=== PATIENT | female | born 1990 | race Caucasian/White ===

== ENCOUNTER 2016-04-09 09:15 | Emergency (ER) | payer MEDICAID, OTHER ==
[~2016-04-09] VITALS: Ht 170.2 cm; Wt 50.0 kg
[~2016-04-09 09:15] MED LIST: CIPR0.3S2 LEFT EYE
[2016-04-09 09:17] VITALS: BP 103/67; PULSE 89; RESP 16; TEMP 97.4; O2SAT 96
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
[2016-04-09] MEDS ORDERED: ORPHENADRINE INJ 60 MG/2 ML AMP IM ONE (09:45)
[2016-04-09] MEDS ORDERED: KETOROLAC TROMETHAMINE 60 MG/2 ML (IM) VIAL IM ONE (09:45)
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
[2016-04-09] MEDS ORDERED: ROBA750T PO (10:10)
[2016-04-09] MEDS ORDERED: NAPR500T PO (10:10)
[2016-04-09] MEDS ORDERED: CYCLOBENZAPRINE HCL 10 MG TAB PO ONE (10:30)
[2016-04-09] MEDS ORDERED: IBUPROFEN 800 MG TAB PO ONE (10:30)
== END 2016-04-09 12:19 | disposition home or self-care (01) ==
LOC: NEPB 09:15
DX: S16.1XXA Strain of muscle, fascia and tendon at neck level, initial encounter (principal); V49.59XA Passenger injured in collision with other motor vehicles in traffic accident, initial encounter; Y93.89 Activity, other specified; Y92.410 Unspecified street and highway as the place of occurrence of the external cause
CPT/HCPCS: 72050; 96372; 99284; J1885; J2360

== ENCOUNTER 2016-06-03 08:24 | Emergency (ER) | payer MEDICAID, OTHER ==
[~2016-06-03] VITALS: Ht 170.2 cm; Wt 50.0 kg
[~2016-06-03 08:24] MED LIST changes: -CIPR0.3S2 LEFT EYE; +NAPR500T PO; +ROBA750T PO
[2016-06-03 08:26] VITALS: BP 101/70; PULSE 96; RESP 16; TEMP 98.1; O2SAT 99
--- NOTE | 2016-06-03 08:51 | PD ---
HPI Chief Complaint: Oral / Dental Pain or Problem Time Seen by Provider: 08:51 Travel History International Travel<30 days: No Contact w/Intl Traveler<30days: No Traveled to known affect area: No History of Present Illness HPI 26-year-old female presents to the emergency Department with complaint of left lower dental pain since yesterday. Denies trauma. Denies fever, chills, nausea , vomiting. The pain radiates from her lower jaw to her ear. Denies facial erythema, edema. Reports tenderness on palpation to the left lower jaw area. She has been taking Advil with no relief of pain. Has a dentist she can follow- up with. No known allergies. No other modifying factors or associated signs and symptoms. PFSH Past Medical History Cancer: No Cardiovascular Problems: No Diabetes: No Diminished Hearing: No Endocrine: No Gastrointestinal Disorders: No Genitourinary: No Immune Disorder: No Implanted Vascular Access Dvce: No Musculoskeletal: No Neurologic: No Psychiatric: No Reproductive: Yes (tubal times 2) Respiratory: No Immunizations Current: Yes ?: Not : 2 Para: 1 Miscarriage: 1 : 0 Ectopic : Yes Dilation and Curettage (D&C): Yes Past Surgical History Gynecologic Surgery: Yes (SX POST TUBAL 2007 and 2012) Pacemaker: No Social History Alcohol Use: No Tobacco Use: No Substance Use: No Allergies-Medications (Allergen,Severity, Reaction): Coded Allergies: No Known Allergies (Verified , 04/09/16) Reported Meds & Prescriptions Reported Meds & Active Scripts Active Ibuprofen 800 Mg Tab 800 Mg PO Q6HR PRN Magic Mouthwash Pediatric/Adult Liq (Lidocaine/Diphenhydr/Alum/Mg/Simeth) 60 Ml Susp 5 Ml SWISH-SWAL Q3HR PRN Each 5mL contains: Diphenydramine 4.5mg, Viscous Lidocaine 2% 10mg, Maalox Advanced Regular Strength 2.7ml Amoxicillin 500 Mg Cap 500 Mg PO BID 10 Days Peridex Liq (Chlorhexidine Gluconate (Mouth) Liq) 0.12% Soln 15 Ml SWISH-SPIT BID 10 Days Robaxin (Methocarbamol) 750 Mg Tab 750 Mg PO QID PRN 2 tabs QID for 2 days, then 1 tab QID thereafter Naproxen 500 Mg Tab 500 Mg PO BID Review of Systems Except as stated in HPI: all other systems reviewed are Neg Physical Exam Narrative GENERAL: Well-nourished, well-developed female patient, in no acute distress; afebrile, nontoxic-appearing SKIN: Warm and dry. HEAD: Atraumatic. Normocephalic. No facial edema, erythema; with tenderness on palpation to the left lower jaw line. No lymphadenopathy. EYES: Pupils equal and round. No scleral icterus. No injection or drainage. ENT: Mucosa pink and moist. No erythema or exudates. No uvular edema. No uvular , palatal, or tonsillar deviation. Airway patent. EARS: Bilateral pinnae and external canals appear within normal limits. Bilateral tympanic membranes without erythema, dullness or perforation. MOUTH: Mucous membranes moist, no lesions, tongue and gums appear normal. Left lower wisdom tooth with part of the tooth missing with tenderness on palpation; surrounding gingiva without erythema, edema, drainage; no obvious abscess. NECK: Trachea midline. No lymphadenopathy. CARDIOVASCULAR: Regular rate. RESPIRATORY: No accessory muscle use. GASTROINTESTINAL: Flat. MUSCULOSKELETAL: No obvious deformities. No clubbing. No cyanosis. No edema. NEUROLOGICAL: Awake and alert. Oriented 3. No obvious cranial nerve deficits. Motor grossly within normal limits. Normal speech. PSYCHIATRIC: Appropriate mood and affect; insight and judgment normal. Data Data Last Documented VS Vital Signs Date Time Temp Pulse Resp B/P Pulse Ox O2 Delivery O2 Flow Rate FiO2 06/03/16 08:26 98.1 96 16 101/70 99 Room Air Orders Ibuprofen (Motrin) (06/03/16 09:00) [facility] Medical Decision Making Medical Screen Exam Complete: Yes Emergency Medical Condition: Yes Medical Record Reviewed: Yes Differential Diagnosis Dentalgia, dental abscess, dental caries Narrative Course 26-year-old female with left lower wisdom tooth dentalgia. No facial erythema, edema. No lymphadenopathy. Patient is afebrile and nontoxic-appearing. Ibuprofen administered in the ER. Amoxicillin, Magic mouthwash, Peridex mouth rinse, ibuprofen prescribed for home. Instructed patient to follow up with dentist. Patient verbalizes understanding and agreement with treatment plan. Patient is medically cleared and stable for discharge. Discussed reasons to return to the emergency department. Instructed patient to follow up with primary care provider. Patient agrees with treatment plan. The patients vital signs are stable and the patient is stable for outpatient follow-up and treatment. Patient discharged home, stable and in no acute distress. Diagnosis Primary Impression: Dentalgia Referrals: Dentist Primary Care Physician Patient Instructions: Dental Abscess (ED), Dental Caries (ED), General Instructions, Toothache (ED) Additional Instructions: Complete full course of antibiotics Ibuprofen as directed and as needed to reduce pain and inflammation Use Magic mouthwash rinse as directed and as needed to decrease pain Use Peridex as directed for oral hygiene Warm compresses to the affected area Follow-up with dentist Follow-up with primary care provider Return to emergency department immediately with worsening of symptoms Med/Other Pt SpecificInfo: Prescription(s) given Scripts Ibuprofen 800 Mg Qsp892 Mg PO Q6HR PRN (PAIN) #30 TAB Ref 0 Prov:Alfreda Bradley 06/03/16 Wnwtmxyibhupfns-Iafecpnav-Kbu-Alum-Simeth Liq (Magic Mouthwash Pediatric/Adult Liq)60 Ml Susp5 Ml SWISH-SWAL Q3HR PRN (PAIN SCALE 1 TO 10) #60 ML Ref 0 Each 5mL contains: Diphenydramine 4.5mg, Viscous Lidocaine 2% 10mg, Maalox Advanced Regular Strength 2.7ml Prov:Alfreda Bradley 06/03/16 Amoxicillin 500 Mg Fuk436 Mg PO BID 10 Days Ref 0 Prov:Alfreda Bradley 06/03/16 Chlorhexidine Gluconate (Mouth) Liq (Peridex Liq)0.12% Soln15 Ml SWISH-SPIT BID 10 Days Ref 0 Prov:Alfreda Bradley 06/03/16 Disposition: 01 DISCHARGE HOME Condition: Stable Alfreda Bradley Jun 03, 2016 08:51
[2016-06-03] MEDS ORDERED: PERI0.126 SWISH-SPIT (08:59)
[2016-06-03] MEDS ORDERED: AMOX500C PO (08:59)
[2016-06-03] MEDS ORDERED: IBUP800T23 PO (08:59)
[2016-06-03] MEDS ORDERED: MAGICPED SWISH-SWAL (08:59)
[2016-06-03] MEDS ORDERED: IBUPROFEN 800 MG TAB PO ONE (09:00)
[2016-06-04] MEDS ORDERED: PERC5TAB12 PO (09:54)
== END 2016-06-03 09:23 | disposition home or self-care (01) ==
LOC: NEPB 08:24
DX: K08.89 Other specified disorders of teeth and supporting structures (principal)
CPT/HCPCS: 99282

== ENCOUNTER 2016-06-04 08:25 | Emergency (ER) | payer MEDICAID, OTHER ==
[~2016-06-04] VITALS: Ht 170.2 cm; Wt 50.0 kg
[~2016-06-04 08:25] MED LIST changes: +AMOX500C PO; +IBUP800T23 PO; +MAGICPED SWISH-SWAL; +PERI0.126 SWISH-SPIT
[2016-06-04 08:27] VITALS: BP 115/68; PULSE 80; RESP 18; TEMP 98.1; O2SAT 97
[2016-06-04] MEDS ORDERED: PERC5TAB12 PO (09:54)
--- NOTE | 2016-06-04 09:54 | PD ---
HPI Chief Complaint: Oral / Dental Pain or Problem Time Seen by Provider: 09:43 Travel History International Travel<30 days: No Contact w/Intl Traveler<30days: No Traveled to known affect area: No History of Present Illness HPI This is a 26-year-old female who presents to the emergency department with swelling in her left jaw for 2 days, constant, severe, associated with pain in her mouth and difficulty biting down and opening her mouth. She denies any fevers or chills. She was seen here yesterday in the emergency department and was prescribed ibuprofen and amoxicillin which she's been taking but she says the pain is getting worse. She said she was unable to sleep last night. She tried to put a hot compress on her face and that was the only thing that helped her. She plans to go to a dentist later today. PFSH Past Medical History Medical History: Denies Significant Hx Cancer: No Cardiovascular Problems: No Diabetes: No Diminished Hearing: No Endocrine: No Gastrointestinal Disorders: No Genitourinary: No Immune Disorder: No Implanted Vascular Access Dvce: No Musculoskeletal: No Neurologic: No Psychiatric: No Reproductive: Yes (tubal times 2) Respiratory: No Immunizations Current: Yes ?: Not : 2 Para: 1 Miscarriage: 1 : 0 Ectopic : Yes Dilation and Curettage (D&C): Yes Past Surgical History Gynecologic Surgery: Yes (SX POST TUBAL 2007 and 2012) Pacemaker: No Social History Alcohol Use: No Tobacco Use: No Substance Use: No Allergies-Medications (Allergen,Severity, Reaction): Coded Allergies: No Known Allergies (Verified , 04/09/16) Reported Meds & Prescriptions Reported Meds & Active Scripts Active Ibuprofen 800 Mg Tab 800 Mg PO Q6HR PRN Magic Mouthwash Pediatric/Adult Liq (Lidocaine/Diphenhydr/Alum/Mg/Simeth) 60 Ml Susp 5 Ml SWISH-SWAL Q3HR PRN Each 5mL contains: Diphenydramine 4.5mg, Viscous Lidocaine 2% 10mg, Maalox Advanced Regular Strength 2.7ml Amoxicillin 500 Mg Cap 500 Mg PO BID 10 Days Peridex Liq (Chlorhexidine Gluconate (Mouth) Liq) 0.12% Soln 15 Ml SWISH-SPIT BID 10 Days Robaxin (Methocarbamol) 750 Mg Tab 750 Mg PO QID PRN 2 tabs QID for 2 days, then 1 tab QID thereafter Naproxen 500 Mg Tab 500 Mg PO BID Review of Systems Except as stated in HPI: all other systems reviewed are Neg Physical Exam Narrative GENERAL:Well appearing, no acute distress SKIN: Warm and dry. HEAD: Atraumatic. Normocephalic. EYES: Pupils equal and round. No injection or drainage. ENT: Fractured posterior left mandibular molar with adjacent swelling and marked tenderness, focal fluctuant area along the left mandible with no surface erythema or induration, exquisitely tender to palpation. No submandibular or sublingual involvement. Patient is able to handle her secretions without difficulty. NECK: Trachea midline. CARDIOVASCULAR: Regular rate and rhythm. No murmur appreciated. RESPIRATORY: Clear to auscultation. Breath sounds equal bilaterally. GASTROINTESTINAL: Abdomen soft, non-tender, nondistended. MUSCULOSKELETAL: No obvious deformities. NEUROLOGICAL: Awake and alert. No obvious cranial nerve deficits. Moving all extremities. PSYCHIATRIC: Tearful. Data Data Last Documented VS Vital Signs Date Time Temp Pulse Resp B/P Pulse Ox O2 Delivery O2 Flow Rate FiO2 06/04/16 08:27 98.1 80 18 115/68 97 MDM Medical Decision Making Medical Screen Exam Complete: Yes Emergency Medical Condition: Yes Interpretation(s) Afebrile, no tachycardia Differential Diagnosis Dental abscess, Thor angina, sialadenitis Narrative Course This is a 26-year-old female who presents to the emergency department the second day in a row with a left-sided dental abscess. She is handling her secretions without difficulty and appears nontoxic. She has no signs of Thor angina. I think she is appropriate for outpatient dental follow-up. She will be prescribed a short course of Percocet for pain control and was advised to continue her antibiotics. Diagnosis Primary Impression: Dental abscess Additional Instructions: If you develop fever, swelling of your neck or chest, or inability to swallow or drooling return to the emergency department. Follow-up with a dentist as soon as possible. Complete your antibiotics as prescribed. Med/Other Pt SpecificInfo: Prescription(s) given Scripts Oxycodone-Acetaminophen (Percocet)5-325 mg Tab1-2 Tab PO Q6H PRN (PAIN) #8 TAB Ref 0 Prov:Angie David MD 3/23/17 Disposition: 01 DISCHARGE HOME Condition: Stable Highet,Angie H. MD Jun 04, 2016 09:54
[2016-06-04 10:11] VITALS: BP 116/78
== END 2016-06-04 10:12 | disposition home or self-care (01) ==
LOC: NEPB 08:25
DX: K04.7 Periapical abscess without sinus (principal)
CPT/HCPCS: 99282

== ENCOUNTER 2016-08-21 16:14 | Emergency (ER) | payer MEDICAID ==
[~2016-08-21] VITALS: Ht 170.2 cm; Wt 50.0 kg
[~2016-08-21 16:14] MED LIST changes: +PERC5TAB12 PO
[2016-08-21 16:16] VITALS: BP 103/66; PULSE 76; RESP 20; TEMP 98.4; O2SAT 98
--- NOTE | 2016-08-21 16:36 | PD ---
Physical Exam Date Seen by Provider: Aug 21, 2016 Time Seen by Provider: 16:35 Data Data Last Documented VS Vital Signs Date Time Temp Pulse Resp B/P Pulse Ox O2 Delivery O2 Flow Rate FiO2 08/21/16 16:16 98.4 76 20 103/66 98 Room Air [facility] Supervised Visit with SHARYN: No Narrative Course 26 YO F with complaint of 7/10 left lower dental pain x 2 days. Facial swelling began today. --fevers. Endorses dental caries in the area. Vitals reviewed. Awaiting bed placement. Lisa Ellsworth Aug 21, 2016 16:36
--- NOTE | 2016-08-21 16:42 | PD ---
HPI Chief Complaint: Oral / Dental Pain or Problem Time Seen by Provider: 16:42 Travel History International Travel<30 days: No Contact w/Intl Traveler<30days: No Traveled to known affect area: No History of Present Illness HPI 26-year-old female presents to emergency Department with complaint of left lower tooth pain since yesterday with facial swelling that started today. Denies fever, vomiting. Has history of dental abscess to the same tooth, and was seen here in May, and has not followed up with a dentist. Took 1 pill of amoxicillin last night from an old prescription. Has no other medical complaints. No known allergies. No other modifying factors or associated signs and symptoms. PFSH Past Medical History Cancer: No Cardiovascular Problems: No Diabetes: No Diminished Hearing: No Endocrine: No Gastrointestinal Disorders: No Genitourinary: No Immune Disorder: No Implanted Vascular Access Dvce: No Musculoskeletal: No Neurologic: No Psychiatric: No Reproductive: Yes (tubal times 2) Respiratory: No Immunizations Current: Yes ?: Not LMP: 08/14/16 : 2 Para: 1 Miscarriage: 1 : 0 Ectopic : Yes Dilation and Curettage (D&C): Yes Past Surgical History Gynecologic Surgery: Yes (SX POST TUBAL 2007 and 2012) Pacemaker: No Social History Alcohol Use: No Tobacco Use: No Substance Use: No Allergies-Medications (Allergen,Severity, Reaction): Coded Allergies: No Known Allergies (Verified , 04/09/16) Reported Meds & Prescriptions Reported Meds & Active Scripts Active Deltasone (Prednisone) 20 Mg Tab 40 Mg PO DAILY 4 Days Start August 22, 2016 Clindamycin (Clindamycin HCl) 150 Mg Cap 450 Mg PO Q6H 10 Days Percocet (Oxycodone-Acetaminophen) 5-325 mg Tab 1-2 Tab PO Q6H PRN Ibuprofen 800 Mg Tab 800 Mg PO Q6HR PRN Magic Mouthwash Pediatric/Adult Liq (Lidocaine/Diphenhydr/Alum/Mg/Simeth) 60 Ml Susp 5 Ml SWISH-SWAL Q3HR PRN Each 5mL contains: Diphenydramine 4.5mg, Viscous Lidocaine 2% 10mg, Maalox Advanced Regular Strength 2.7ml Amoxicillin 500 Mg Cap 500 Mg PO BID 10 Days Peridex Liq (Chlorhexidine Gluconate (Mouth) Liq) 0.12% Soln 15 Ml SWISH-SPIT BID 10 Days Robaxin (Methocarbamol) 750 Mg Tab 750 Mg PO QID PRN 2 tabs QID for 2 days, then 1 tab QID thereafter Naproxen 500 Mg Tab 500 Mg PO BID Review of Systems Except as stated in HPI: all other systems reviewed are Neg Physical Exam Narrative GENERAL: Well-nourished, well-developed female patient, in no acute distress; afebrile, nontoxic-appearing SKIN: Warm and dry. HEAD: Atraumatic. Normocephalic. Left left lower facial edema; without erythema ; with tenderness on palpation. No lymphadenopathy. EYES: Pupils equal and round. No scleral icterus. No injection or drainage. ENT: Mucosa pink and moist. Airway patent. MOUTH: Mucous membranes moist, no lesions, tongue and gums appear normal. Tooth #18 with tenderness on palpation and large dental cavity. Surrounding gingiva is without erythema, edema, drainage. No obvious abscess noted. NECK: Trachea midline. No lymphadenopathy. CARDIOVASCULAR: Regular rate. RESPIRATORY: No accessory muscle use. GASTROINTESTINAL: Flat. MUSCULOSKELETAL: No obvious deformities. No clubbing. No cyanosis. No edema. NEUROLOGICAL: Awake and alert. Oriented 3. No obvious cranial nerve deficits. Motor grossly within normal limits. Normal speech. PSYCHIATRIC: Appropriate mood and affect; insight and judgment normal. Data Data Last Documented VS Vital Signs Date Time Temp Pulse Resp B/P Pulse Ox O2 Delivery O2 Flow Rate FiO2 08/21/16 16:16 98.4 76 20 103/66 98 Room Air Orders Clindamycin Inj (Cleocin Inj) (08/21/16 16:45) Prednisone (Deltasone) (08/21/16 16:45) MDM Medical Decision Making Medical Screen Exam Complete: Yes Emergency Medical Condition: Yes Medical Record Reviewed: Yes Differential Diagnosis Dental abscess, infected dental caries, dentalgia Narrative Course 26-year-old female with left lower dental abscess. Patient afebrile and nontoxic appearing. Left lower facial swelling. She denies fever, vomiting. Clindamycin 600 mg IM and Deltasone administered in the ER. After the patient pain medication and she declined at this time. Emergency dental information sheet provided for follow-up. The patient to follow up with dentist. Patient verbalizes understanding and agreement with treatment plan. Patient is medically cleared and stable for discharge. Discussed reasons to return to the emergency department. Instructed patient to follow up with primary care provider. Patient agrees with treatment plan. The patients vital signs are stable and the patient is stable for outpatient follow-up and treatment. Patient discharged home, stable and in no acute distress. Diagnosis Primary Impression: Dental abscess Referrals: Dentist Primary Care Physician Patient Instructions: Dental Abscess (ED), Dental Caries (ED), General Instructions, Toothache (ED) Departure Forms: Tests/Procedures, Work Release Enter return to work date: Aug 22, 2016 Additional Instructions: Complete full course of antibiotics; clindamycin is on the $4 list at [facility] , otherwise try [facility] Ibuprofen or Tylenol as directed and as needed to reduce pain and inflammation Use Magic mouthwash rinse as directed and as needed to decrease pain Use Peridex as directed for oral hygiene Warm or cool compresses to the affected area Follow-up with dentist Follow-up with primary care provider Return to emergency department immediately with worsening of symptoms Med/Other Pt SpecificInfo: Prescription(s) given Scripts Prednisone (Deltasone)20 Mg Tab40 Mg PO DAILY 4 Days Ref 0 Start August 22, 2016 Prov:Alfreda Bradley 08/21/16 Clindamycin 150 Mg [id number] Mg PO Q6H 10 Days Ref 0 Prov:Alfreda Bradley 08/21/16 Disposition: 01 DISCHARGE HOME Condition: Stable Alfreda Bradley Aug 21, 2016 16:42
[2016-08-21] MEDS ORDERED: CLIN1CAP5 PO (16:45)
[2016-08-21] MEDS ORDERED: PRED-503 PO (16:45)
[2016-08-21] MEDS ORDERED: predniSONE 20 MG TAB PO ONE (16:45)
[2016-08-21] MEDS ORDERED: CLINDAMYCIN PHOS 600 MG/4 ML VIAL IM ONE (16:45)
== END 2016-08-21 17:15 | disposition home or self-care (01) ==
LOC: NEPK 16:14
DX: K04.7 Periapical abscess without sinus (principal); R22.0 Localized swelling, mass and lump, head
CPT/HCPCS: 96372; 99284; J7512

== ENCOUNTER 2016-09-05 17:19 | Emergency (ER) | payer MEDICAID ==
[~2016-09-05] VITALS: Ht 170.2 cm; Wt 52.0 kg
[~2016-09-05 17:19] MED LIST changes: +CLIN1CAP5 PO; +PRED-503 PO
[2016-09-05 17:21] VITALS: BP 112/71; PULSE 64; RESP 14; TEMP 98.6; O2SAT 98
[2016-09-05] MEDS ORDERED: CLINDAMYCIN PHOS 600 MG/4 ML VIAL IM ONE (17:45)
[2016-09-05] MEDS ORDERED: CLINDAMYCIN PED INJ PTS< 20 KG 600 MG in SYRINGE/BAG 1 EA IV ONE (17:45)
[2016-09-05] MEDS ORDERED: CLIN1CAP6 PO (17:55)
--- NOTE | 2016-09-05 17:55 | PD ---
HPI Chief Complaint: Oral / Dental Pain or Problem Time Seen by Provider: 17:37 Travel History International Travel<30 days: No Contact w/Intl Traveler<30days: No Traveled to known affect area: No History of Present Illness HPI This is a 26-year-old female who presents to the emergency department with 2 days of swelling in her left jaw and in her mouth, constant, moderate severity, feeling like dental infection she's had in the past. She denies any fevers or chills. She is having no difficulty swallowing or breathing. She went to a dentist earlier this week but they told her that they wouldn't remove her tooth until her swelling went down. She says the last time she was in the emergency department she received an IM injection of antibiotics which really helped her. PFSH Past Medical History Cancer: No Cardiovascular Problems: No Diabetes: No Diminished Hearing: No Endocrine: No Gastrointestinal Disorders: No Genitourinary: No Immune Disorder: No Implanted Vascular Access Dvce: No Musculoskeletal: No Neurologic: No Psychiatric: No Reproductive: Yes (tubal times 2) Respiratory: No Immunizations Current: Yes ?: Not LMP: 08/04/16 : 2 Para: 1 Miscarriage: 1 : 0 Ectopic : Yes Dilation and Curettage (D&C): Yes Past Surgical History Gynecologic Surgery: Yes (SX POST TUBAL 2007 and 2012) Pacemaker: No Social History Alcohol Use: No Tobacco Use: No Substance Use: No Allergies-Medications (Allergen,Severity, Reaction): Coded Allergies: No Known Allergies (Verified , 09/05/16) Reported Meds & Prescriptions Reported Meds & Active Scripts Active No Active Prescriptions or Reported Medications Review of Systems Except as stated in HPI: all other systems reviewed are Neg Physical Exam Narrative GENERAL:Well appearing, no acute distress SKIN: Focused skin assessment warm and dry. HEAD: Atraumatic. Normocephalic. EYES: Pupils equal and round. No injection or drainage. ENT: Swelling and tenderness of the left mandible, with no submandibular involvement, normal-appearing posterior pharynx NECK: Trachea midline. CARDIOVASCULAR: Regular rate and rhythm. No murmur appreciated. RESPIRATORY: Clear to auscultation. Breath sounds equal bilaterally. GASTROINTESTINAL: Abdomen soft, non-tender, nondistended. MUSCULOSKELETAL: No obvious deformities. NEUROLOGICAL: Awake and alert. No obvious cranial nerve deficits. Moving all extremities. PSYCHIATRIC: Appropriate mood and affect; insight and judgment normal. Data Data Last Documented VS Vital Signs Date Time Temp Pulse Resp B/P Pulse Ox O2 Delivery O2 Flow Rate FiO2 09/05/16 17:39 16 09/05/16 17:21 98.6 64 112/71 98 Orders Clindamycin Ped Inj Pts< 20 Kg (Cleocin (09/05/16 17:45) Clindamycin Inj (Cleocin Inj) (09/05/16 17:45) MDM Medical Decision Making Medical Screen Exam Complete: Yes Emergency Medical Condition: Yes Differential Diagnosis dental abscess, sunday's angina, dentalgia Narrative Course This is a 26-year-old female who presents to the emergency department with a likely dental abscess along the left mandible. She is nontoxic appearing and has no airway compromise and is swallowing easily. She is appropriate for outpatient therapy. She is given a dose of IM clindamycin and will be discharged on oral clindamycin. Diagnosis Primary Impression: Dental abscess Patient Instructions: General Instructions Additional Instructions: If you develop increasing swelling, difficulty swallowing, difficulty breathing or high fever return to the emergency department. Med/Other Pt SpecificInfo: Prescription(s) given Scripts Clindamycin 300 Mg [id number] Mg PO TID #21 CAP Prov:Angie David MD 09/05/16 Disposition: 01 DISCHARGE HOME Condition: Stable Angie David MD Sep 05, 2016 17:55
[2016-09-05] MEDS ORDERED: CLINDAMYCIN 600 MG/NS 100 ML IV ONE ×2 (18:00)
== END 2016-09-05 18:50 | disposition home or self-care (01) ==
LOC: NEPD 17:19
DX: K04.7 Periapical abscess without sinus (principal)
CPT/HCPCS: 96372

== ENCOUNTER 2017-05-10 11:24 | Emergency (ER) | payer MEDICAID ==
[~2017-05-10 11:24] MED LIST changes: -AMOX500C PO; -CLIN1CAP5 PO; +CLIN300C5 PO; -IBUP800T23 PO; -MAGICPED SWISH-SWAL; -NAPR500T PO; -PERC5TAB12 PO; -PERI0.126 SWISH-SPIT; -PRED-503 PO; -ROBA750T PO
[2017-05-10 12:10] VITALS: BP 130/77; PULSE 65; RESP 12; TEMP 98.6; O2SAT 99
[2017-05-10] MEDS ORDERED: CLIN300C5 PO (13:33)
[2017-05-10] MEDS ORDERED: MAGICADU2 SWISH-SPIT (13:33)
[2017-05-10] MEDS ORDERED: IBUP1TAB7 PO (13:33)
--- NOTE | 2017-05-10 13:37 | PD ---
HPI Chief Complaint: Oral / Dental Pain or Problem Time Seen by Provider: 13:25 Travel History International Travel<30 days: No Contact w/Intl Traveler<30days: No Traveled to known affect area: No History of Present Illness HPI Examined in the presence of a nurse. 27-year-old female presents for evaluation of dental pain. Symptoms started 2 weeks ago. Pain is a throbbing pain, constant, localized to the left mandibular second molar and radiating to the left pentecostal. Pain is unrelieved with [id number] NSAID use. Denies fevers, chills. She reports that she has had frequent similar problems in the past and is attempting to get an appointment with a dentist. No other complaints at this time. PFSH Past Medical History Medical History: Denies Significant Hx Cancer: No Cardiovascular Problems: No Diabetes: No Diminished Hearing: No Endocrine: No Gastrointestinal Disorders: No Genitourinary: No Immune Disorder: No Implanted Vascular Access Dvce: No Musculoskeletal: No Neurologic: No Psychiatric: No Reproductive: Yes (tubal times 2) Respiratory: No Immunizations Current: Yes Tetanus Vaccination: > 5 Years Influenza Vaccination: No ?: Not LMP: 05/05/17 : 2 Para: 1 Miscarriage: 1 : 0 Ectopic : Yes Dilation and Curettage (D&C): Yes Past Surgical History Gynecologic Surgery: Yes (SX POST TUBAL 2007 and 2012) Pacemaker: No Social History Alcohol Use: No Tobacco Use: No Substance Use: No Allergies-Medications (Allergen,Severity, Reaction): Coded Allergies: No Known Allergies (Verified , 09/05/16) Reported Meds & Prescriptions Reported Meds & Active Scripts Active Clindamycin (Clindamycin HCl) 300 Mg Cap 300 Mg PO TID Magic Mouthwash Adult Liq (Multi-Ingredient Mouthwash/Gargle) 120 Ml Susp 10 Ml SWISH-SPIT ACHS Each 5mL contains: Nystatin 200,000units, Diphenhydramine 4.25mg, Viscous Lidocaine 10mg, Campbell syrup 0.8 mL Ibuprofen 800 Mg Tab 800 Mg PO Q6HR PRN Clindamycin (Clindamycin HCl) 300 Mg Cap 300 Mg PO TID Review of Systems General / Constitutional: No: Fever, Chills HENT: Positive: Dental Difficulties, No: Ear Discharge, Earache Physical Exam Narrative GENERAL: Well-nourished female in no acute distress SKIN: Warm and dry. HEAD: Atraumatic. Normocephalic. EYES: Pupils equal and round. No scleral icterus. No injection or drainage. ENT: No nasal bleeding or discharge. Mucous membranes pink and moist. Left mandibular second molar is decayed and the surrounding gumline is erythematous. There is no trismus, no facial edema, no sublingual edema. NECK: Trachea midline. No JVD. CARDIOVASCULAR: Regular rate and rhythm. No murmur appreciated. RESPIRATORY: No accessory muscle use. Clear to auscultation. Breath sounds equal bilaterally. Data Data Last Documented VS Vital Signs Date Time Temp Pulse Resp B/P (MAP) Pulse Ox O2 Delivery O2 Flow Rate FiO2 05/10/17 12:10 98.6 65 12 130/77 (94) 99 Orders Orders Ed Discharge Order (05/10/17 13:33) Clindamycin Inj (Cleocin Inj) (05/10/17 13:45) MDM Medical Decision Making Medical Screen Exam Complete: Yes Emergency Medical Condition: Yes Medical Record Reviewed: Yes Differential Diagnosis Dental caries, pulpitis, pericoronitis, periodontal abscess Narrative Course The patient will be treated with clindamycin. She is specifically requesting an intramuscular injection of clindamycin. Ultimately she will require tooth extraction. She is stable for discharge. Diagnosis Primary Impression: Dental caries Additional Instructions: Medication as prescribed. Follow up with a dentist for definitive therapy. Return for any emergent medical conditions. Med/Other Pt SpecificInfo: Prescription(s) given Scripts Clindamycin (Clindamycin) 300 Mg Cap 300 MG PO TID for Infection, #21 CAP 0 Refills Prov: Duane Aguayo MD 05/10/17 Wbukuzps-Abxfjkrgdoalnjx-Cuomoslje Liq (Magic Mouthwash Adult Liq) 120 Ml Susp 10 ML SWISH-SPIT ACHS for Mouth sores, #120 ML 0 Refills Each 5mL contains: Nystatin 200,000units, Diphenhydramine 4.25mg, Viscous Lidocaine 10mg, Campbell syrup 0.8 mL Prov: Duane Aguayo MD 05/10/17 Ibuprofen (Ibuprofen) 800 Mg Tab 800 MG PO Q6HR Y for PAIN, #40 TAB 0 Refills Prov: Duane Aguayo MD 05/10/17 Disposition: 01 DISCHARGE HOME Condition: Stable Wellington Wallace May 10, 2017 13:37
[2017-05-10] MEDS ORDERED: CLINDAMYCIN PHOS 600 MG/4 ML VIAL IM ONE (13:45)
[2017-05-10] MEDS ORDERED: diphenhydrAMINE HCL 50 MG/ML VIAL IM ONE (14:00)
== END 2017-05-10 14:21 | disposition home or self-care (01) ==
LOC: NEPK 11:24
DX: K02.9 Dental caries, unspecified (principal)
CPT/HCPCS: 96372; 99283; J1200

== ENCOUNTER 2017-05-23 13:00 | Emergency (ER) | payer SELFPAY ==
[~2017-05-23] VITALS: Ht 170.2 cm; Wt 55.0 kg
[~2017-05-23 13:00] MED LIST changes: +IBUP1TAB7 PO; +MAGICADU2 SWISH-SPIT
[2017-05-23 13:15] VITALS: BP 102/67; PULSE 87; RESP 18; TEMP 98.5; O2SAT 98
[2017-05-23] MEDS ORDERED: LIDOCAINE VISCOUS 2% SOLN 15 ML UDC PO ONE (15:15)
[2017-05-23] MEDS ORDERED: ALUMINUM/MAGNESIUM/SIMETH 30 ML CUP PO ONE (15:15)
[2017-05-23] MEDS ORDERED: ACETAMINOPHEN/HYDROcodone 325 MG/5 MG TAB PO ONE (15:15)
[2017-05-23] MEDS ORDERED: SODIUM CHLORIDE 0.9% FLUSH 10 ML FLUSH IV FLUSH PRN (15:15)
[2017-05-23 15:26] VITALS: O2SAT 99
[2017-05-23] MEDS ORDERED: PENI500T PO (15:43)
--- NOTE | 2017-05-23 15:45 | PD ---
HPI Chief Complaint: Oral / Dental Pain or Problem Time Seen by Provider: 15:00 Travel History International Travel<30 days: No Contact w/Intl Traveler<30days: No Traveled to known affect area: No History of Present Illness HPI The patient is 27 years old and complains of left face pain and swelling for approximately 1 week. The pain is worse with opening the mouth. No fever. Pain is worse with palpation. It is constant and of moderate severity. Patient reports diagnosis of a dental abscess approximately a week and a half ago and was prescribed antibiotics however lost the antibiotics. She reports minimal pain relief from ibuprofen. She complains of epigastric and right upper quadrant pain for the last day and a half. No vomiting. No vaginal discharge or bleeding. No fever. PFSH Past Medical History Cancer: No Cardiovascular Problems: No Diabetes: No Diminished Hearing: No Endocrine: No Gastrointestinal Disorders: No Genitourinary: No Immune Disorder: No Implanted Vascular Access Dvce: No Musculoskeletal: No Neurologic: No Psychiatric: No Reproductive: Yes (tubal times 2) Respiratory: No Immunizations Current: Yes ?: Not : 2 Para: 1 Miscarriage: 1 : 0 Ectopic : Yes Dilation and Curettage (D&C): Yes Past Surgical History Gynecologic Surgery: Yes (SX POST TUBAL 2007 and 2012) Pacemaker: No Social History Alcohol Use: No Tobacco Use: No Substance Use: No Allergies-Medications (Allergen,Severity, Reaction): Coded Allergies: No Known Allergies (Verified Adverse Reaction, Unknown, 05/23/17) Reported Meds & Prescriptions Reported Meds & Active Scripts Active Penicillin V Potassium 500 Mg Tab 500 Mg PO Q8H 10 Days Clindamycin (Clindamycin HCl) 300 Mg Cap 300 Mg PO TID Magic Mouthwash Adult Liq (Multi-Ingredient Mouthwash/Gargle) 120 Ml Susp 10 Ml SWISH-SPIT ACHS Each 5mL contains: Nystatin 200,000units, Diphenhydramine 4.25mg, Viscous Lidocaine 10mg, Campbell syrup 0.8 mL Ibuprofen 800 Mg Tab 800 Mg PO Q6HR PRN Clindamycin (Clindamycin HCl) 300 Mg Cap 300 Mg PO TID Review of Systems Except as stated in HPI: all other systems reviewed are Neg General / Constitutional: No: Fever Physical Exam Narrative GENERAL: 27-year-old female moderate distress Vital Signs Date Time Temp Pulse Resp B/P (MAP) Pulse Ox O2 Delivery O2 Flow Rate FiO2 05/23/17 15:26 99 05/23/17 13:15 98.5 87 18 102/67 (79) 98 SKIN: Warm and dry. HEAD: Atraumatic. Normocephalic. EYES: Pupils equal and round. No scleral icterus. No injection or drainage. ENT: No nasal bleeding or discharge. Mucous membranes pink and moist. L dental abscess with TTP L lower molars. NECK: Trachea midline. No JVD. CARDIOVASCULAR: Regular rate and rhythm. RESPIRATORY: No accessory muscle use. Clear to auscultation. Breath sounds equal bilaterally. GASTROINTESTINAL: Soft. Minimal TTP epigastrium. MUSCULOSKELETAL: Extremities without clubbing, cyanosis, or edema. No obvious deformities. NEUROLOGICAL: Awake and alert. No obvious cranial nerve deficits. Motor grossly within normal limits. Five out of 5 muscle strength in the arms and legs. Normal speech. PSYCHIATRIC: Appropriate mood and affect; insight and judgment normal. Data Data Last Documented VS Vital Signs Date Time Temp Pulse Resp B/P (MAP) Pulse Ox O2 Delivery O2 Flow Rate FiO2 05/23/17 15:26 99 05/23/17 13:15 98.5 87 18 102/67 (79) Orders Orders Complete Blood Count With Diff (05/23/17 15:06) Comprehensive Metabolic Panel (05/23/17 15:06) Lipase (05/23/17 15:06) Urinalysis - C+S If Indicated (05/23/17 15:06) Iv Access Insert/Monitor (05/23/17 15:06) Ecg Monitoring (05/23/17 15:06) Oximetry (05/23/17 15:06) Sodium Chloride 0.9% Flush (Ns Flush) (05/23/17 15:15) Ed Urine Pregnancytest Poc (05/23/17 15:06) Acetamin-Hydrocod 325-5 Mg ([place] 5-325 (05/23/17 15:15) Al-Mag Hy-Si 40-40-4 Mg/Ml Liq (Mag-Al P (05/23/17 15:15) Lidocaine 2% Viscous (Xylocaine 2% Visco (05/23/17 15:15) Ed Discharge Order (05/23/17 16:09) Labs Laboratory Tests Test 05/23/17 15:21 White Blood Count 9.2 TH/MM3 Red Blood Count 4.48 MIL/MM3 Hemoglobin 13.0 GM/DL Hematocrit 38.6 % Mean Corpuscular Volume 86.1 FL Mean Corpuscular Hemoglobin 28.9 PG Mean Corpuscular Hemoglobin Concent 33.6 % Red Cell Distribution Width 14.0 % Platelet Count 235 TH/MM3 Mean Platelet Volume 9.2 FL Neutrophils (%) (Auto) 63.9 % Lymphocytes (%) (Auto) 25.9 % Monocytes (%) (Auto) 8.8 % Eosinophils (%) (Auto) 0.9 % Basophils (%) (Auto) 0.5 % Neutrophils # (Auto) 5.9 TH/MM3 Lymphocytes # (Auto) 2.4 TH/MM3 Monocytes # (Auto) 0.8 TH/MM3 Eosinophils # (Auto) 0.1 TH/MM3 Basophils # (Auto) 0.0 TH/MM3 CBC Comment DIFF FINAL Differential Comment Urine Color YELLOW Urine Turbidity HAZY Urine pH 6.5 Urine Specific [place] 1.029 Urine Protein TRACE mg/dL Urine Glucose (UA) NEG mg/dL Urine Ketones 40 mg/dL Urine Occult Blood NEG Urine Nitrite NEG Urine Bilirubin NEG Urine Urobilinogen LESS THAN 2.0 MG/DL Urine Leukocyte Esterase NEG Urine WBC 1 /hpf Urine Squamous Epithelial Cells 5 /hpf Urine Bacteria RARE /hpf Urine Mucus MANY /lpf Microscopic Urinalysis Comment CULT NOT INDICATED Blood Urea Nitrogen 12 MG/DL Creatinine 0.57 MG/DL Random Glucose 81 MG/DL Total Protein 7.2 GM/DL Albumin 3.9 GM/DL Calcium Level 8.4 MG/DL Alkaline Phosphatase 72 U/L Aspartate Amino Transf (AST/SGOT) 9 U/L Alanine Aminotransferase (ALT/SGPT) 10 U/L Total Bilirubin 0.8 MG/DL Sodium Level 139 MEQ/L Potassium Level 3.8 MEQ/L Chloride Level 107 MEQ/L Carbon Dioxide Level 25.6 MEQ/L Anion Gap 6 MEQ/L Estimat Glomerular Filtration Rate 126 ML/MIN Lipase 52 U/L [facility] Medical Decision Making Medical Screen Exam Complete: Yes Emergency Medical Condition: Yes Medical Record Reviewed: Yes Differential Diagnosis Dental abscess, Thor angina, parotid duct occlusion, Constipation, Gastritis, Acute Cholecystitis, Biliary Colic, Pancreatitis, TAI, Hepatitis, Bowel Obstruction, Cystitis, Mesenteric Ischemia, AAA, Appendicitis, Renal Stone/ Hydronephrosis, GERD, perforated viscous Narrative Course CBC & BMP Diagram 05/23/17 15:21 Total Protein 7.2, Albumin 3.9, Calcium Level 8.4 L, Alkaline Phosphatase 72, Aspartate Amino Transf (AST/SGOT) 9 L, Alanine Aminotransferase (ALT/SGPT) 10, Total Bilirubin 0.8 The patient is resting comfortably and feels better, is alert and in no distress. The patients results and examination findings were discussed. The repeat examination is unremarkable and benign. The history, exam, diagnostic testing, and current condition do not suggest any significant pathology to warrant further testing, continued ED treatment, admission, or surgical evaluation at this point. The vital signs have been stable. The patient does not have uncontrollable pain, intractable vomiting, or other significant symptoms. The patient's condition is stable and appropriate for discharge. The patient will pursue further outpatient evaluation with a primary care physician or other designated or consulting physician as indicated in the discharge instructions. The patient expressed understanding and was agreeable with this plan. Diagnosis Primary Impression: Dentalgia Additional Impression: Dental abscess Referrals: Dentist 2 days Med/Other Pt SpecificInfo: Prescription(s) given Scripts Penicillin V Potassium (Penicillin V Potassium) 500 Mg Tab 500 MG PO Q8H for Infection for 10 Days, #30 TAB 0 Refills Prov: Abdias Stern MD 05/23/17 Disposition: 01 DISCHARGE HOME Condition: Stable Abdias Stern MD May 23, 2017 15:45
[2017-05-23 15:51] LABS: AUTOMATED NEUTROPHIL # 5.9 TH/MM3 (1.8-7.7); BASOPHIL % 0.5 % (0.0-2.0); EOSINOPHIL # 0.1 TH/MM3 (0-0.4); EOSINOPHIL % 0.9 % (0.0-4.0); HEMATOCRIT 38.6 % (35.0-46.0); LYMPH % 25.9 % (9.0-44.0); LYMPHOCYTE # 2.4 TH/MM3 (1.0-4.8); MEAN CELL VOLUME 86.1 FL (80.0-100.0); MEAN CORPUSCULAR HEMOGLOBIN 28.9 PG (27.0-34.0); MEAN CORPUSCULAR HGB CONC 33.6 % (32.0-36.0); MEAN PLATELET VOLUME 9.2 FL (7.0-11.0); MONO % 8.8 % (0.0-8.0); MONOCYTE # 0.8 TH/MM3 (0-0.9); NEUT % 63.9 % (16.0-70.0); PLATELET COUNT 235 TH/MM3 (150-450); RED BLOOD COUNT 4.48 MIL/MM3 (4.00-5.30); WHITE BLOOD COUNT 9.2 TH/MM3 (4.0-11.0)
[2017-05-23 15:58] LABS: BACTERIA, URINE RARE /hpf; BILIRUBIN, URINE NEG (NEG); BLOOD, URINE NEG (NEG); GLUCOSE,URINE NEG (NEG); KETONE, URINE 40 mg/dL (NEG); MUCUS URINE MANY /lpf (OCC); NITRITE,URINE NEG (NEG); PH, URINE 6.5 (5.0-8.5); SQUAMOUS EPITHELIAL CELL URINE 5 /hpf (0-5); URINE COLOR YELLOW (YELLW/STRAW); URINE LEUKOCYTE ESTERASE NEG (NEG)
[2017-05-23 16:02] LABS: ALBUMIN 3.9 GM/DL (3.4-5.0); ALT (GPT) 10 U/L (10-53); AST (GOT) 9 U/L (15-37); BICARBONATE 25.6 MEQ/L (21.0-32.0); BLOOD UREA NITROGEN 12 MG/DL (7-18); CALCIUM 8.4 MG/DL (8.5-10.1); CHLORIDE 107 MEQ/L (98-107); CREATININE 0.57 MG/DL (0.50-1.00); GLOMERULAR FILTRATION RATE 126 ML/MIN (>89); GLUCOSE,RANDOM 81 MG/DL (74-106); SODIUM (NA) 139 MEQ/L (136-145)
[2017-05-23 16:03] LABS: ALKALINE PHOSPHATASE 72 U/L (45-117); TOTAL BILIRUBIN ADULT 0.8 MG/DL (0.2-1.0); TOTAL PROTEIN 7.2 GM/DL (6.4-8.2)
== END 2017-05-23 16:12 | disposition home or self-care (01) ==
LOC: NEPD 13:00
DX: K04.7 Periapical abscess without sinus (principal)
CPT/HCPCS: 80053; 81001; 83690; 84703; 85025; 99283

== ENCOUNTER 2017-05-26 15:40 | Emergency (ER) | payer MEDICAID ==
[~2017-05-26] VITALS: Ht 170.2 cm; Wt 55.0 kg
[~2017-05-26 15:40] MED LIST changes: +PENI500T PO
[2017-05-26] MEDS ORDERED: IOHEXOL 350 MG/ML 10 ML VIAL (for RAD DIAG) IVCONTRAST ONE (15:41)
[2017-05-26 16:15] VITALS: BP 104/63; PULSE 81; RESP 17; TEMP 98.6; O2SAT 100
[2017-05-26 17:39] VITALS: BP 115/75; PULSE 68; RESP 18; O2SAT 100
[2017-05-26] MEDS ORDERED: SODIUM CHLOR 0.9% 1000 ML INJ 1,000 ML IV ONE (18:00)
[2017-05-26] MEDS ORDERED: SODIUM CHLORIDE 0.9% FLUSH 10 ML FLUSH IVF PRN (18:00)
[2017-05-26] MEDS ORDERED: MORPHINE SULFATE 2 MG/ML INJ IV PUSH ONE (18:00)
[2017-05-26] MEDS ORDERED: ONDANSETRON HCL 4 MG/2 ML VIAL IV PUSH ONE (18:00)
[2017-05-26] MEDS ORDERED: KETOROLAC TROMETHAMINE 60 MG/2 ML (IM) VIAL IM ONE (18:00)
--- NOTE | 2017-05-26 18:08 | PD ---
HPI Chief Complaint: Facial Pain or Swelling Time Seen by Provider: 17:36 Travel History International Travel<30 days: No Contact w/Intl Traveler<30days: No Traveled to known affect area: No History of Present Illness HPI 27-year-old female presents emergency department is about swelling of her left jaw that worsened last night. States that she was evaluated by her dentist and was due to have her wisdom tooth extracted but states he cannot do this until the abscess or swelling reduce in size. Says that she also came to the emergency department twice where she was prescribed clindamycin and Pen-VK but the swelling has worsened. Says that initially the area of swelling was "squishy" but has since hardened become more painful. States she is unable to open her jaw fully and is having difficulty eating. Says she has pain from her proximal neck to her TMJ and is severe and aching. Says she felt feverish yesterday with sweats but does not feel feverish now. Says she took ibuprofen about 9:00 this morning which did help a little with her pain. She denies chronic medical issues or medication use. PFSH Past Medical History Cancer: No Cardiovascular Problems: No Diabetes: No Diminished Hearing: No Endocrine: No Gastrointestinal Disorders: No Genitourinary: No Immune Disorder: No Implanted Vascular Access Dvce: No Musculoskeletal: No Neurologic: No Psychiatric: No Reproductive: Yes (tubal ) Respiratory: No Immunizations Current: Yes ?: Not LMP: 05/10/17 : 2 Para: 1 Miscarriage: 1 : 0 Ectopic : Yes Dilation and Curettage (D&C): Yes Past Surgical History Gynecologic Surgery: Yes (SX POST TUBAL 2007 and 2012) Pacemaker: No Social History Alcohol Use: No Tobacco Use: No Substance Use: No Allergies-Medications (Allergen,Severity, Reaction): Coded Allergies: No Known Allergies (Verified Adverse Reaction, Unknown, 05/26/17) Reported Meds & Prescriptions Reported Meds & Active Scripts Active Cefadroxil Liq (Cefadroxil) 500 Mg/5 Ml Susp 500 Mg PO BID 10 Days Penicillin V Potassium 500 Mg Tab 500 Mg PO Q8H 10 Days Ibuprofen 800 Mg Tab 800 Mg PO Q6HR PRN Review of Systems Except as stated in HPI: all other systems reviewed are Neg Physical Exam Narrative GENERAL: WD WN, anxious SKIN: Focused skin assessment warm/dry. HEAD: Atraumatic. Normocephalic. EYES: Pupils equal and round. No scleral icterus. No injection or drainage. No tenderness palpation of the orbits, no ptosis, no proptosis ENT: No nasal bleeding or discharge. Mucous membranes pink and moist, significant trismus without drooling, patient able to open her jaw less than 1 finger width, protrusion the lateral aspect of the left mandible near the angle of the jaw NECK: Trachea midline. No JVD. Tenderness palpation mid neck SCMs without lymphadenopathy, no meningismus, swelling does not cross midline CARDIOVASCULAR: Regular rate and rhythm. No murmur appreciated. RESPIRATORY: No accessory muscle use. Clear to auscultation. Breath sounds equal bilaterally. GASTROINTESTINAL: Abdomen soft, non-tender, nondistended. No CVA tenderness MUSCULOSKELETAL: No obvious deformities. No clubbing. No cyanosis. No edema. NEUROLOGICAL: Awake and alert. No obvious cranial nerve deficits. Motor grossly within normal limits. Normal speech. PSYCHIATRIC: Appropriate mood and affect; insight and judgment normal. Data Data Last Documented VS Vital Signs Date Time Temp Pulse Resp B/P (MAP) Pulse Ox O2 Delivery O2 Flow Rate FiO2 05/27/17 00:21 05/26/17 19:06 83 20 100 Room Air 05/26/17 16:15 98.6 Orders Orders Ketorolac Inj (Toradol Inj) (05/26/17 18:00) Basic Metabolic Panel (Bmp) (05/26/17 17:48) Complete Blood Count With Diff (05/26/17 17:48) Blood Culture (05/26/17 17:48) Sodium Chloride 0.9% Flush (Ns Flush) (05/26/17 18:00) Morphine Inj (Morphine Inj) (05/26/17 18:00) Ondansetron Inj (Zofran Inj) (05/26/17 18:00) Sodium Chlor 0.9% 1000 Ml Inj (Ns 1000 M (05/26/17 18:00) Ct Soft Tiss Neck W Iv Cont (05/26/17 ) C-Reactive Protein (Crp) (05/26/17 17:48) Westergren Sedimentation Rate (05/26/17 17:48) Ketorolac Inj (Toradol Inj) (05/26/17 18:15) Iohexol 350 Inj (Omnipaque 350 Inj) (05/26/17 15:41) Vancomycin Inj (Vancomycin Inj) (05/26/17 20:45) Ceftriaxone Inj (Rocephin Inj) (05/26/17 21:00) Ed Discharge Order (05/26/17 21:46) Labs Laboratory Tests Test 05/26/17 18:00 White Blood Count 8.9 TH/MM3 Red Blood Count 4.59 MIL/MM3 Hemoglobin 13.2 GM/DL Hematocrit 39.4 % Mean Corpuscular Volume 85.8 FL Mean Corpuscular Hemoglobin 28.7 PG Mean Corpuscular Hemoglobin Concent 33.5 % Red Cell Distribution Width 13.6 % Platelet Count 249 TH/MM3 Mean Platelet Volume 9.3 FL Neutrophils (%) (Auto) 64.2 % Lymphocytes (%) (Auto) 26.7 % Monocytes (%) (Auto) 7.9 % Eosinophils (%) (Auto) 0.8 % Basophils (%) (Auto) 0.4 % Neutrophils # (Auto) 5.7 TH/MM3 Lymphocytes # (Auto) 2.4 TH/MM3 Monocytes # (Auto) 0.7 TH/MM3 Eosinophils # (Auto) 0.1 TH/MM3 Basophils # (Auto) 0.0 TH/MM3 CBC Comment DIFF FINAL Differential Comment Erythrocyte Sedimentation Rate 12 mm/hr Blood Urea Nitrogen 11 MG/DL Creatinine 0.67 MG/DL Random Glucose 71 MG/DL Calcium Level 9.0 MG/DL Sodium Level 139 MEQ/L Potassium Level 3.9 MEQ/L Chloride Level 106 MEQ/L Carbon Dioxide Level 25.2 MEQ/L Anion Gap 8 MEQ/L Estimat Glomerular Filtration Rate 105 ML/MIN C-Reactive Protein 1.30 MG/DL [facility] Medical Decision Making Medical Screen Exam Complete: Yes Emergency Medical Condition: Yes Differential Diagnosis Liquids angina, tooth abscess, neck abscess, sialitis Narrative Course 27-year-old female presents emergency department is about swelling of her left jaw that worsened last night. States that she was evaluated by her dentist and was due to have her wisdom tooth extracted but states he cannot do this until the abscess or swelling reduce in size. Says that she also came to the emergency department twice where she was prescribed clindamycin and Pen-Vee K but the swelling has only worsened. Says that initially the area of swelling was "squishy" but has since hardened become more painful. States she is unable to open her jaw fully. Says she has pain from her proximal neck to her TMJ. Says she felt feverish yesterday with sweats but does not feel feverish now. She denies chronic medical issues or medication use. Says she took ibuprofen about 9:00 this morning which did help a little with her pain. Vital signs stable. Toradol 30 mg, morphine 2 mg, Zofran 4 mg administered for pain. CBC & BMP Diagram 05/26/17 18:00 Calcium Level 9.0 ESR 12, CRP 1.30. I spoke with CT and they recommended CT neck soft tissue with IV contrast. After review the EMR, it appears that patient presents emergency department for dental pain May 10 where she received clindamycin for outpatient use. She returned May 23 for worsening pain and she was prescribed Pen-VK. States that her pain is significantly worsened and the swelling has increased. Last Impressions Neck CT 05/26/17 0000 Signed Impressions: Service Date/Time: Friday, May 26, 2017 19:48 - CONCLUSION: 1. Soft tissue abscess adjacent to the left side of the mandible and presumably on the basis of dental disease. Please see above. 2. Rhinitis and ethmoid sinusitis. Mark Alvarez MD Because of the location and extent of this abscess, will consult with maxillofacial specialist. I spoke with DR. GUALLPA, maxillofacial specialist and he recommended her follow- up in the office tomorrow morning. Advised that she have a funeral driver as she will be sedated during the I&D. In addition, he states that he will extract the offending teeth. He recommended vancomycin administration in the ER and outpatient antibiotics of [facility] [place]. I explained very explicitly the instructions what Dr. Guallpa recommended. Patient states understanding, will comply. She is very appreciative of today's care. Diagnosis Primary Impression: Abscess Referrals: Dentist Departure Forms: Tests/Procedures, Work Release Enter return to work date: May 31, 2017 Additional Instructions: Follow-up with Dr. Guallpa tomorrow morning. Call at 0800. [phone] Take all medications as prescribed. May continue ibuprofen but be sure to eat at this medication may irritate her stomach. Scripts Cefadroxil Liq (Cefadroxil Liq) 500 Mg/5 Ml Susp 500 MG PO BID for Infection for 10 Days, #100 ML 0 Refills Prov: Donna Lindsay 05/26/17 Disposition: 01 DISCHARGE HOME Condition: Stable Donna Lindsay May 26, 2017 18:08
[2017-05-26] MEDS ORDERED: KETOROLAC TROMETHAMINE 30 MG/ML (IVP) VIAL IV PUSH ONE (18:15)
[2017-05-26 18:37] LABS: AUTOMATED NEUTROPHIL # 5.7 TH/MM3 (1.8-7.7); BASOPHIL % 0.4 % (0.0-2.0); EOSINOPHIL # 0.1 TH/MM3 (0-0.4); EOSINOPHIL % 0.8 % (0.0-4.0); HEMATOCRIT 39.4 % (35.0-46.0); HEMOGLOBIN 13.2 GM/DL (11.6-15.3); LYMPH % 26.7 % (9.0-44.0); LYMPHOCYTE # 2.4 TH/MM3 (1.0-4.8); MEAN CELL VOLUME 85.8 FL (80.0-100.0); MEAN CORPUSCULAR HEMOGLOBIN 28.7 PG (27.0-34.0); MEAN CORPUSCULAR HGB CONC 33.5 % (32.0-36.0); MEAN PLATELET VOLUME 9.3 FL (7.0-11.0); MONO % 7.9 % (0.0-8.0); MONOCYTE # 0.7 TH/MM3 (0-0.9); NEUT % 64.2 % (16.0-70.0); PLATELET COUNT 249 TH/MM3 (150-450); RED BLOOD COUNT 4.59 MIL/MM3 (4.00-5.30); RED CELL DISTRIBUTION WIDTH 13.6 % (11.6-17.2); WHITE BLOOD COUNT 8.9 TH/MM3 (4.0-11.0)
[2017-05-26 19:06] VITALS: BP 119/76; PULSE 83; RESP 20; O2SAT 100
[2017-05-26 19:18] LABS: BICARBONATE 25.2 MEQ/L (21.0-32.0); C-REACTIVE PROTEIN 1.3 MG/DL (0.00-0.30); CREATININE 0.67 MG/DL (0.50-1.00)
--- NOTE | 2017-05-26 20:26 | RADRPT ---
EXAM DATE/TIME: 05/26/2017 19:48 [facility] COMPARISON: No previous studies available for comparison. INDICATIONS : Swelling left side of face IV CONTRAST: 66 cc Omnipaque 350 (iohexol) IV RADIATION DOSE: 13.68 CTDIvol (mGy) MEDICAL HISTORY : None SURGICAL HISTORY : None. ENCOUNTER: Initial ACUITY: 1 day PAIN SCALE: 10/10 LOCATION: Left neck TECHNIQUE: Volumetric scanning of the neck was performed. Using automated exposure control and adjustment of th e mA and/or kV according to patient size, radiation dose was kept as low as reasonably achievable to obtain optimal diagnostic quality images. DICOM format image data is available electronically for r eview and comparison. FINDINGS: A. rim enhancing fluid collection typical of an abscess is seen in the soft tissues adjacent to the l eft angle of the mandible. Fluid collection is approximately 2.4 x 2.4 cm in greatest transaxial dime nsion. Superficial margin of the fluid collection is just a few millimeters beneath the skin. Caries and broken teeth noted. [place] teeth are impacted. There is a periapical lucency of the molar adjacen t to the left lower wisdom tooth typical of a periapical abscess. Left submandibular lymph nodes measuring up to 1 cm in greatest short axis dimension are present. There is mucoperiosteal thickening of the nasal cavity and ethmoid air cells. CONCLUSION: 1. Soft tissue abscess adjacent to the left side of the mandible and presumably on the basis of denta l disease. Please see above. 2. Rhinitis and ethmoid sinusitis. Mark Alvarez MD on May 26, 2017 at 20:21 Board Certified Radiologist. This report was verified electronically.
[2017-05-26] MEDS ORDERED: VANCOMYCIN INJ 1,500 MG in SODIUM CHLORID 0.9% 500 ML INJ 500 ML IV ONE (20:45)
[2017-05-26] MEDS ORDERED: cefTRIAXone INJ 1,000 MG in SODIUM CHLORIDE 0.9% INJ 100 ML IV ONE (21:00)
[2017-05-26] MEDS ORDERED: CEFA5SUS PO (21:07)
== END 2017-05-27 00:21 | disposition home or self-care (01) ==
LOC: NEPC 15:40
DX: M27.2 Inflammatory conditions of jaws (principal); B95.7 Other staphylococcus as the cause of diseases classified elsewhere; Z79.2 Long term (current) use of antibiotics
CPT/HCPCS: 70491; 80048; 85025; 85652; 86140; 86403; 87040; 87077; 87186; 87205; 96374; 96375; 99284; J0696; J1885; J3370; J7030; J7040; Q9967

== ENCOUNTER 2017-06-01 18:32 | Emergency (ER) | payer MEDICAID ==
[~2017-06-01 18:32] MED LIST changes: +CEFA5SUS PO; -CLIN300C5 PO; -MAGICADU2 SWISH-SPIT
[2017-06-01 18:41] VITALS: BP 99/50; PULSE 82; RESP 19; TEMP 97.7; O2SAT 98
[2017-06-01 20:41] LABS: AUTOMATED NEUTROPHIL # 3.5 TH/MM3 (1.8-7.7); BASOPHIL % 0.6 % (0.0-2.0); EOSINOPHIL # 0.1 TH/MM3 (0-0.4); EOSINOPHIL % 1.8 % (0.0-4.0); HEMATOCRIT 39.3 % (35.0-46.0); HEMOGLOBIN 13.1 GM/DL (11.6-15.3); LYMPH % 36.7 % (9.0-44.0); LYMPHOCYTE # 2.4 TH/MM3 (1.0-4.8); MEAN CELL VOLUME 84.5 FL (80.0-100.0); MEAN CORPUSCULAR HEMOGLOBIN 28.1 PG (27.0-34.0); MEAN CORPUSCULAR HGB CONC 33.3 % (32.0-36.0); MEAN PLATELET VOLUME 9.2 FL (7.0-11.0); MONO % 7.7 % (0.0-8.0); MONOCYTE # 0.5 TH/MM3 (0-0.9); NEUT % 53.2 % (16.0-70.0); PLATELET COUNT 274 TH/MM3 (150-450); RED BLOOD COUNT 4.65 MIL/MM3 (4.00-5.30); RED CELL DISTRIBUTION WIDTH 13.4 % (11.6-17.2); WHITE BLOOD COUNT 6.5 TH/MM3 (4.0-11.0)
[2017-06-01 20:47] LABS: BACTERIA, URINE OCC /hpf; BILIRUBIN, URINE NEG (NEG); BLOOD, URINE MOD (NEG); GLUCOSE,URINE NEG (NEG); KETONE, URINE 80 mg/dL (NEG); MUCUS URINE MANY /lpf (OCC); NITRITE,URINE NEG (NEG); PH, URINE 5.5 (5.0-8.5); SQUAMOUS EPITHELIAL CELL URINE 12 /hpf (0-5); URINE COLOR YELLOW (YELLW/STRAW); URINE LEUKOCYTE ESTERASE TRACE (NEG)
[2017-06-01 21:09] LABS: BICARBONATE 25.8 MEQ/L (21.0-32.0); CALCIUM 8.8 MG/DL (8.5-10.1); CREATININE 0.68 MG/DL (0.50-1.00)
[2017-06-02] MEDS ORDERED: SODIUM CHLOR 0.9% 1000 ML INJ 1,000 ML IV SCH (00:28)
[2017-06-02] MEDS ORDERED: MORPHINE SULFATE 4 MG/ML INJ IV PUSH ONE (00:30)
[2017-06-02] MEDS ORDERED: ONDANSETRON HCL 4 MG/2 ML VIAL IVP ONE (00:30)
--- NOTE | 2017-06-02 00:41 | PD ---
HPI Chief Complaint: Program Trainer Problem/Complaint Time Seen by Provider: 00:18 Travel History International Travel<30 days: No Contact w/Intl Traveler<30days: No Traveled to known affect area: No History of Present Illness HPI Examined in the presence of a female nurse. 27-year-old female presents for evaluation of abdominal pain and back pain. Symptoms started 2 days ago. Pain is primarily in the epigastrium and right lower quadrant as well as in the lower back. Pain is an aching pain which is constant with no aggravating or relieving factors. She endorses nausea and several episodes of emesis over the past few hours. She reports vaginal bleeding which just started today however her last menstrual period was 1 month ago so she thinks that she could be starting her menstruation. She denies any unusual vaginal discharge. Denies dysuria, increased urinary frequency or hesitancy, objective fevers however she has had myalgias. No other complaints at this time. PFSH Past Medical History Medical History: Denies Significant Hx Cancer: No Cardiovascular Problems: No Diabetes: No Diminished Hearing: No Endocrine: No Gastrointestinal Disorders: No Genitourinary: No Immune Disorder: No Implanted Vascular Access Dvce: No Musculoskeletal: No Neurologic: No Psychiatric: No Reproductive: Yes (tubal ) Respiratory: No Immunizations Current: Yes ?: Not : 2 Para: 1 Miscarriage: 1 : 0 Ectopic : Yes Dilation and Curettage (D&C): Yes Past Surgical History Gynecologic Surgery: Yes (SX POST TUBAL 2007 and 2012) Pacemaker: No Social History Alcohol Use: Yes (socially) Tobacco Use: No Substance Use: No Allergies-Medications (Allergen,Severity, Reaction): Coded Allergies: No Known Allergies (Verified Adverse Reaction, Unknown, 06/02/17) Reported Meds & Prescriptions Reported Meds & Active Scripts Active Zofran (Ondansetron HCl) 4 Mg Tab 4 Mg PO Q6HR PRN Review of Systems Except as stated in HPI: all other systems reviewed are Neg Physical Exam Narrative GENERAL: Well-developed well-nourished female no acute distress SKIN: Warm and dry. HEAD: Atraumatic. Normocephalic. EYES: Pupils equal and round. No scleral icterus. No injection or drainage. ENT: No nasal bleeding or discharge. Mucous membranes pink and moist. NECK: Trachea midline. No JVD. CARDIOVASCULAR: Regular rate and rhythm. No murmur appreciated. RESPIRATORY: No accessory muscle use. Clear to auscultation. Breath sounds equal bilaterally. GASTROINTESTINAL: Abdomen soft, tender to palpation in the epigastrium and right lower quadrant without guarding. No CVA tenderness. MUSCULOSKELETAL: No obvious deformities. No clubbing. No cyanosis. No edema. NEUROLOGICAL: Awake and alert. No obvious cranial nerve deficits. Motor grossly within normal limits. Normal speech. PSYCHIATRIC: Appropriate mood and affect; insight and judgment normal. Data Data Last Documented VS Vital Signs Date Time Temp Pulse Resp B/P (MAP) Pulse Ox O2 Delivery O2 Flow Rate FiO2 06/01/17 18:41 97.7 82 19 99/50 (66) 98 Orders Orders Complete Blood Count With Diff (06/01/17 18:44) Basic Metabolic Panel (Bmp) (06/01/17 18:44) Urinalysis - C+S If Indicated (06/01/17 18:44) Ed Urine Pregnancytest Poc (06/01/17 18:44) Gc And Chlamydia Pcr (06/01/17 18:44) Lipase (06/02/17 00:27) Hepatic Functional Panel (06/02/17 00:27) Ct Abd/Pel W Iv Contrast(Rout) (06/02/17 00:28) Iv Access Insert/Monitor (06/02/17 00:28) Morphine Inj (Morphine Inj) (06/02/17 00:30) Ondansetron Inj (Zofran Inj) (06/02/17 00:30) Sodium Chlor 0.9% 1000 Ml Inj (Ns 1000 M (06/02/17 00:28) Iohexol 350 Inj (Omnipaque 350 Inj) (06/02/17 01:05) Ketorolac Inj (Toradol Inj) (06/02/17 01:45) Ed Discharge Order (06/02/17 01:41) Labs Laboratory Tests Test 06/01/17 20:12 06/01/17 20:15 White Blood Count 6.5 TH/MM3 Red Blood Count 4.65 MIL/MM3 Hemoglobin 13.1 GM/DL Hematocrit 39.3 % Mean Corpuscular Volume 84.5 FL Mean Corpuscular Hemoglobin 28.1 PG Mean Corpuscular Hemoglobin Concent 33.3 % Red Cell Distribution Width 13.4 % Platelet Count 274 TH/MM3 Mean Platelet Volume 9.2 FL Neutrophils (%) (Auto) 53.2 % Lymphocytes (%) (Auto) 36.7 % Monocytes (%) (Auto) 7.7 % Eosinophils (%) (Auto) 1.8 % Basophils (%) (Auto) 0.6 % Neutrophils # (Auto) 3.5 TH/MM3 Lymphocytes # (Auto) 2.4 TH/MM3 Monocytes # (Auto) 0.5 TH/MM3 Eosinophils # (Auto) 0.1 TH/MM3 Basophils # (Auto) 0.0 TH/MM3 CBC Comment DIFF FINAL Differential Comment Blood Urea Nitrogen 12 MG/DL Creatinine 0.68 MG/DL Random Glucose 106 MG/DL Calcium Level 8.8 MG/DL Sodium Level 141 MEQ/L Potassium Level 3.2 MEQ/L Chloride Level 107 MEQ/L Carbon Dioxide Level 25.8 MEQ/L Anion Gap 8 MEQ/L Estimat Glomerular Filtration Rate 103 ML/MIN Total Bilirubin 0.3 MG/DL Direct Bilirubin LESS THAN 0.1 MG/DL Indirect Bilirubin 0.2 MG/DL Aspartate Amino Transf (AST/SGOT) 11 U/L Alanine Aminotransferase (ALT/SGPT) 10 U/L Alkaline Phosphatase 70 U/L Total Protein 7.2 GM/DL Albumin 3.7 GM/DL Lipase 52 U/L Urine Color YELLOW Urine Turbidity HAZY Urine pH 5.5 Urine Specific [place] 1.024 Urine Protein NEG mg/dL Urine Glucose (UA) NEG mg/dL Urine Ketones 80 mg/dL Urine Occult Blood MOD Urine Nitrite NEG Urine Bilirubin NEG Urine Urobilinogen LESS THAN 2.0 MG/DL Urine Leukocyte Esterase TRACE Urine RBC 3 /hpf Urine WBC 3 /hpf Urine Squamous Epithelial Cells 12 /hpf Urine Bacteria OCC /hpf Urine Mucus MANY /lpf Microscopic Urinalysis Comment CULT NOT INDICATED Chlamydia trachomatis DNA (PCR) NOT DETECTED Neisseria gonorrhoeae DNA (PCR) NOT DETECTED [facility] Medical Decision Making Medical Screen Exam Complete: Yes Emergency Medical Condition: Yes Medical Record Reviewed: Yes Differential Diagnosis Gastritis, pancreatitis, biliary colic, appendicitis, colitis, pyelonephritis, cystitis Narrative Course 27-year-old female presents with 2 days of pain in her lower back, epigastrium and right lower quadrant region. She reports some vaginal bleeding and she believes that she is starting her menstrual period As her last menstrual period was on May 04. Denies any unusual discharge. Lab work, urinalysis , CT of the abdomen and pelvis were obtained. The patient was given IV fluids and Zofran and analgesics. CT abdomen and pelvis reveals CONCLUSION: 1. Prominence of the cervix. No evidence of free fluid in the cul-de-sac. 2. No dilated loops of small or large bowel. CBC is unremarkable. Potassium is 3.2 on CMP, otherwise her CMP is unremarkable. Oral potassium chloride will be administered. Lipase is 52. Urinalysis reveals moderate blood with 12 squamous epithelial cells, likely contaminant from menstrual blood. GC probe obtained in triage is negative. Upon reexamination the patient reports that her symptoms are currently resolved. Her workup is reassuring. At this point in time the plan is to treat her with antiemetics and recommend [id number] NSAIDs for her pain. Recommended follow-up with primary care physician and return for any new or worsening symptoms. She is stable for discharge. Diagnosis Primary Impression: Abdominal pain Additional Instructions: [id number] ibuprofen for pain, Zofran for nausea, follow-up with primary care physician, return for any acutely new or worsening symptoms. Med/Other Pt SpecificInfo: Prescription(s) given Scripts Ondansetron (Zofran) 4 Mg Tab 4 MG PO Q6HR Y for NAUSEA OR VOMITING, #20 TAB 0 Refills Prov: Rhoda Lloyd MD 06/02/17 Disposition: 01 DISCHARGE HOME Condition: Stable Wellington Wallace Jun 02, 2017 00:41
[2017-06-02 00:52] LABS: ALBUMIN 3.7 GM/DL (3.4-5.0); ALT (GPT) 10 U/L (10-53); AST (GOT) 11 U/L (15-37); DIRECT BILIRUBIN ADULT LESS THAN 0.1 MG/DL (0.0-0.2)
[2017-06-02 00:54] LABS: ALKALINE PHOSPHATASE 70 U/L (45-117); INDIRECT BILIRUBIN 0.2 MG/DL (0.0-0.8); TOTAL BILIRUBIN ADULT 0.3 MG/DL (0.2-1.0); TOTAL PROTEIN 7.2 GM/DL (6.4-8.2)
[2017-06-02] MEDS ORDERED: IOHEXOL 350 MG/ML 10 ML VIAL (for RAD DIAG) IVCONTRAST ONE (01:05)
--- NOTE | 2017-06-02 01:29 | RADRPT ---
EXAM DATE/TIME: 06/02/2017 01:04 [facility] COMPARISON: No previous studies available for comparison. INDICATIONS : Abdomen pain. IV CONTRAST: 100 cc Omnipaque 350 (iohexol) IV ORAL CONTRAST: No oral contrast ingested. RADIATION DOSE: 6.64 CTDIvol (mGy) MEDICAL HISTORY : Tubal x 2. SURGICAL HISTORY : None. ENCOUNTER: Initial ACUITY: 1 day PAIN SCALE: 5/10 LOCATION: Bilateral lower quadrant TECHNIQUE: Volumetric scanning of the abdomen and pelvis was performed. Using automated exposure control and ad justment of the mA and/or kV according to patient size, radiation dose was kept as low as reasonably achievable to obtain optimal diagnostic quality images. DICOM format image data is available electro nically for review and comparison. FINDINGS: LOWER LUNGS: The visualized lower lungs are clear. LIVER: Homogeneous density without lesion. There is no dilation of the biliary tree. No calcified gallston es. SPLEEN: Normal size without lesion. PANCREAS: Within normal limits. KIDNEYS: Normal in size and shape. There is no mass, stone or hydronephrosis. ADRENAL GLANDS: Within normal limits. VASCULAR: There is no aortic aneurysm. BOWEL/MESENTERY: The stomach, small bowel, and colon demonstrate no acute abnormality. There is no free intraperitone al air or fluid. ABDOMINAL WALL: Within normal limits. RETROPERITONEUM: There is no lymphadenopathy. BLADDER: No wall thickening or mass. REPRODUCTIVE: Anteverted uterus. The cervix is prominent. No evidence of free fluid in the cul-de-sac. No adnexa l masses. INGUINAL: There is no lymphadenopathy or hernia. MUSCULOSKELETAL: Within normal limits for patient age. CONCLUSION: 1. Prominence of the cervix. No evidence of free fluid in the cul-de-sac. 2. No dilated loops of small or large bowel. Curtis Pak MD on June 02, 2017 at 1:25 Board Certified Radiologist. This report was verified electronically.
[2017-06-02] MEDS ORDERED: ZOFR4TAB PO (01:44)
[2017-06-02] MEDS ORDERED: KETOROLAC TROMETHAMINE 30 MG/ML (IVP) VIAL IV PUSH ONE (01:45)
[2017-06-03] MEDS ORDERED: MACR100C2 PO (05:45)
[2017-06-03] MEDS ORDERED: PHEN0.4T PO (06:18)
== END 2017-06-02 04:52 | disposition home or self-care (01) ==
LOC: NED 18:32 → NEPD 06-02 04:52
DX: R10.13 Epigastric pain (principal); R10.31 Right lower quadrant pain; M54.5 Low back pain; R11.2 Nausea with vomiting, unspecified
CPT/HCPCS: 74177; 80048; 80076; 81001; 83690; 84703; 85025; 87491; 87591; 96361; 96374; 96375; 99284; J1885; J2270; J2405; J7030; Q9967

== ENCOUNTER 2017-06-03 03:29 | Emergency (ER) | payer MEDICAID ==
[~2017-06-03] VITALS: Ht 170.2 cm; Wt 54.6 kg
[~2017-06-03 03:29] MED LIST changes: -CEFA5SUS PO; -IBUP1TAB7 PO; -PENI500T PO; +ZOFR4TAB PO
[2017-06-03 03:37] VITALS: BP 123/80; PULSE 90; RESP 20; TEMP 97.5; O2SAT 94
[2017-06-03 03:59] VITALS: BP 107/72; PULSE 77; RESP 18; TEMP 98.2; O2SAT 98
[2017-06-03] MEDS ORDERED: SODIUM CHLOR 0.9% 1000 ML INJ 1,000 ML IV ONE (04:15)
[2017-06-03] MEDS ORDERED: ONDANSETRON HCL 4 MG/2 ML VIAL IV PUSH ONE (04:15)
[2017-06-03] MEDS ORDERED: KETOROLAC TROMETHAMINE 30 MG/ML (IVP) VIAL IV PUSH ONE (04:15)
--- NOTE | 2017-06-03 04:15 | PD ---
HPI Chief Complaint: Abdominal Pain Time Seen by Provider: 04:12 Travel History International Travel<30 days: No Contact w/Intl Traveler<30days: No Traveled to known affect area: No History of Present Illness HPI 27-year-old female presents to the emergency department crying and moaning complaining of abdominal pain flank pain rib pain midline pain that extends up to the sternum. Patient states symptoms began the past 24-48 hours after having dental extraction abscess drainage approximately 5 days ago. Patient was seen yesterday at [facility] workup at that time revealed no acute abnormality and CT abdomen and pelvis was performed which was negative for any acute intra-abdominal or pelvic process. Patient states she started her menstrual period today. No report of abnormal vaginal discharge or abnormal bleeding. Patient states she is taking ibuprofen without relief. Patient denies fever or chills. Patient has history of previous ectopic and dental extraction. The evaluation 06/01/17 CT abdomen and pelvis revealed no acute findings to explain the patient's pain or symptoms and labs were found to be negative. PFSH Past Medical History Cancer: No Cardiovascular Problems: No Diabetes: No Diminished Hearing: No Endocrine: No Gastrointestinal Disorders: No Genitourinary: No Immune Disorder: No Implanted Vascular Access Dvce: No Musculoskeletal: No Neurologic: No Psychiatric: No Reproductive: Yes (tubal ) Respiratory: No Immunizations Current: Yes Tetanus Vaccination: Unknown Influenza Vaccination: No ?: Not LMP: 06/03/17 : 2 Para: 1 Miscarriage: 1 : 0 Ectopic : Yes Dilation and Curettage (D&C): Yes Past Surgical History Gynecologic Surgery: Yes (SX POST TUBAL 2007 and 2012) Oral Surgery: Yes (ABCESS/TOOTH REMOVAL ) Pacemaker: No Social History Alcohol Use: Yes (socially) Tobacco Use: No Substance Use: No Allergies-Medications (Allergen,Severity, Reaction): Coded Allergies: No Known Allergies (Verified Adverse Reaction, Unknown, 06/02/17) Reported Meds & Prescriptions Reported Meds & Active Scripts Active Macrobid (Nitrofurantoin Monoh/Nitrofur Macro) 100 Mg Cap 100 Mg PO BID 7 Days Zofran (Ondansetron HCl) 4 Mg Tab 4 Mg PO Q6HR PRN Review of Systems Except as stated in HPI: all other systems reviewed are Neg General / Constitutional: No: Fever, Chills HENT: No: Congestion Cardiovascular: No: Chest Pain or Discomfort Respiratory: Positive: Shortness of Breath Gastrointestinal: Positive: Nausea, Abdominal Pain, No: Vomiting Genitourinary: Positive: Dysuria, Flank Pain Musculoskeletal: Positive: Myalgias, Arthralgias Neurologic: No: Weakness Psychiatric: No: Anxiety Hematologic/Lymphatic: No: Lymph Node Enlargement Physical Exam Narrative GENERAL: Well-developed well-nourished female in no acute respiratory distress but writhing about the exam room and exam stretcher crying and moaning. GCS 15. SKIN: Warm and dry. HEAD: Normocephalic. EYES: No scleral icterus. No injection or drainage. NECK: Supple, trachea midline. No JVD or lymphadenopathy. CARDIOVASCULAR: Regular rate and rhythm without murmurs, gallops, or rubs. RESPIRATORY: Breath sounds equal bilaterally. No accessory muscle use. GASTROINTESTINAL: Abdomen soft, non-tender, nondistended. MUSCULOSKELETAL: No cyanosis, or edema. BACK: Nontender without obvious deformity. No CVA tenderness. Data Data Last Documented VS Vital Signs Date Time Temp Pulse Resp B/P (MAP) Pulse Ox O2 Delivery O2 Flow Rate FiO2 06/03/17 05:25 16 99 Room Air 06/03/17 03:59 98.2 77 Orders Orders Basic Metabolic Panel (Bmp) (06/03/17 04:12) Complete Blood Count With Diff (06/03/17 04:12) Urinalysis - C+S If Indicated (06/03/17 04:12) Iv Access Insert/Monitor (06/03/17 04:12) Oximetry (06/03/17 04:12) Ed Urine Pregnancytest Poc (06/03/17 04:12) D-Dimer (06/03/17 04:12) Ondansetron Inj (Zofran Inj) (06/03/17 04:15) Ketorolac Inj (Toradol Inj) (06/03/17 04:15) Sodium Chlor 0.9% 1000 Ml Inj (Ns 1000 M (06/03/17 04:15) Beta Hcg (Quant/Titer) (06/03/17 04:15) Ct Pulmonary Angiogram (06/03/17 ) Urine Culture (06/03/17 04:30) Iohexol 350 Inj (Omnipaque 350 Inj) (06/03/17 05:21) Labs Laboratory Tests Test 06/03/17 04:24 06/03/17 04:30 White Blood Count 5.4 TH/MM3 Red Blood Count 4.53 MIL/MM3 Hemoglobin 12.4 GM/DL Hematocrit 38.5 % Mean Corpuscular Volume 85.0 FL Mean Corpuscular Hemoglobin 27.3 PG Mean Corpuscular Hemoglobin Concent 32.2 % Red Cell Distribution Width 12.6 % Platelet Count 252 TH/MM3 Mean Platelet Volume 9.1 FL Neutrophils (%) (Auto) 47.9 % Lymphocytes (%) (Auto) 41.0 % Monocytes (%) (Auto) 8.7 % Eosinophils (%) (Auto) 1.5 % Basophils (%) (Auto) 0.9 % Neutrophils # (Auto) 2.5 TH/MM3 Lymphocytes # (Auto) 2.2 TH/MM3 Monocytes # (Auto) 0.5 TH/MM3 Eosinophils # (Auto) 0.1 TH/MM3 Basophils # (Auto) 0.0 TH/MM3 CBC Comment DIFF FINAL Differential Comment D-Dimer Quantitative (PE/DVT) 1.29 MG/L FEU Blood Urea Nitrogen 9 MG/DL Creatinine 0.56 MG/DL Random Glucose 90 MG/DL Calcium Level 7.9 MG/DL Sodium Level 140 MEQ/L Potassium Level 3.7 MEQ/L Chloride Level 109 MEQ/L Carbon Dioxide Level 23.3 MEQ/L Anion Gap 8 MEQ/L Estimat Glomerular Filtration Rate 129 ML/MIN Human Chorionic Gonadotropin, Quant LESS THAN 1 MIU/ML Urine Color BROWN Urine Turbidity SL CLOUDY Urine pH 6.5 Urine Specific [place] GREATER/EQUAL 1.030 Urine Protein TRACE mg/dL Urine Glucose (UA) NEG mg/dL Urine Ketones 40 mg/dL Urine Occult Blood LARGE Urine Nitrite NEG Urine Bilirubin NEG Urine Urobilinogen 0.2 MG/DL Urine Leukocyte Esterase TRACE Urine RBC 3-5 /hpf Urine WBC 3-5 /hpf Urine Squamous Epithelial Cells > 8 /hpf Urine Bacteria MOD /hpf Microscopic Urinalysis Comment CULTURE INDICATED MDM Medical Decision Making Medical Screen Exam Complete: Yes Emergency Medical Condition: Yes Medical Record Reviewed: Yes (06/01 eval for abdominal pain CT abd/pel no acute process, grossly wnl labs) Interpretation(s) CBC & BMP Diagram 06/03/17 04:24 Calcium Level 7.9 #L Vital Signs Date Time Temp Pulse Resp B/P (MAP) Pulse Ox O2 Delivery O2 Flow Rate FiO2 06/03/17 05:25 16 99 Room Air 06/03/17 04:01 18 06/03/17 03:59 98.2 77 18 107/72 (84) 98 06/03/17 03:37 97.5 90 20 123/80 (94) 94 POC hcg: negative quant hcg: less than 1, negative ua: elevated specific gravity, moderate bacteria squam cells blood; cx indicated d-dimer: 1.29, elevated Last Impressions CT Angiography 06/03/17 0000 Signed Impressions: Service Date/Time: May 05:15 - CONCLUSION: The study is negative for pulmonary embolism. Curtis Pak MD Differential Diagnosis Abdominal pain, chest pain, UTI, tubo-ovarian abscess, ectopic , ruptured ovarian cyst, PE, musculoskeletal pain, malingering; patient is afebrile without vaginal discharge and nontoxic in appearance unlikely toxic shock syndrome Narrative Course IV access obtained specimens collected and sent for resulting Patient administered Zofran 4 mg IV and Toradol 30 mg IV Patient's vital signs remain in normal range no tachycardia no hypertension no tachypnea to suggest that patient is an extremis; patient is afebrile; lab values are all in normal range except for clean catch urinalysis which does show moderate bacteria. And elevated d-dimer: 1.29 , after procedural intervention of dental abscess CT pulmonary angiogram Patient is stable for outpatient management --- will discharge with RX for antibiotic and patient encouraged to use OTC acetaminophen and ibuprofen per package directions. @ 6:15 AM patient resting comfortably voicing no complaints aware of lab and imaging results; stable for outpatient management Diagnosis Primary Impression: UTI (urinary tract infection) Qualified Codes: N39.0 - Urinary tract infection, site not specified; R31.9 - Hematuria, unspecified Additional Impressions: Menstrual pain Pleuritic pain Referrals: [facility] call for appointment Patient Instructions: General Instructions Additional Instructions: Complete course of oral antibiotic May take ibuprofen/Advil/Motrin 600 mg as often as every 6 hours as needed for pain associated inflammation for fever 100.4F or greater May take acetaminophen/Tylenol every 4 hours as needed for fever 100.4F or greater or minor pain Follow-up with your primary care provider Return to the emergency department for any concerns or change condition Med/Other Pt SpecificInfo: Prescription(s) given Scripts Phenazopyridine (Pyridium) 100 Mg Tab 100 MG PO Q8H Y for DYSURIA, #6 TAB 0 Refills Prov: Olena Ford MD 06/03/17 Nitrofurantoin Monohydrate Macrocrystals (Macrobid) 100 Mg Cap 100 MG PO BID for Infection for 7 Days, #14 CAP 0 Refills Prov: Olena Ford MD 06/03/17 Disposition: 01 DISCHARGE HOME Condition: Stable Olena Ford MD Jun 03, 2017 04:15
[2017-06-03 04:31] LABS: AUTOMATED NEUTROPHIL # 2.5 TH/MM3 (1.8-7.7); BASOPHIL % 0.9 % (0.0-2.0); EOSINOPHIL # 0.1 TH/MM3 (0-0.4); EOSINOPHIL % 1.5 % (0.0-4.0); HEMATOCRIT 38.5 % (35.0-46.0); HEMOGLOBIN 12.4 GM/DL (11.6-15.3); LYMPHOCYTE # 2.2 TH/MM3 (1.0-4.8); MEAN CORPUSCULAR HEMOGLOBIN 27.3 PG (27.0-34.0); MEAN CORPUSCULAR HGB CONC 32.2 % (32.0-36.0); MEAN PLATELET VOLUME 9.1 FL (7.0-11.0); MONO % 8.7 % (0.0-8.0); MONOCYTE # 0.5 TH/MM3 (0-0.9); NEUT % 47.9 % (16.0-70.0); PLATELET COUNT 252 TH/MM3 (150-450); RED BLOOD COUNT 4.53 MIL/MM3 (4.00-5.30); RED CELL DISTRIBUTION WIDTH 12.6 % (11.6-17.2); WHITE BLOOD COUNT 5.4 TH/MM3 (4.0-11.0)
[2017-06-03 04:42] LABS: CALCIUM 7.9 MG/DL (8.5-10.1)
[2017-06-03 04:43] LABS: BILIRUBIN, URINE NEG (NEG); BLOOD, URINE LARGE (NEG); GLUCOSE,URINE NEG (NEG); KETONE, URINE 40 mg/dL (NEG); NITRITE,URINE NEG (NEG); PH, URINE 6.5 (5.0-8.5); URINE LEUKOCYTE ESTERASE TRACE (NEG)
[2017-06-03 04:43] LABS: BICARBONATE 23.3 MEQ/L (21.0-32.0)
[2017-06-03 04:46] LABS: CREATININE 0.56 MG/DL (0.50-1.00)
[2017-06-03 04:50] LABS: URINE COLOR BROWN (YELLW/STRAW)
[2017-06-03 04:51] LABS: BACTERIA, URINE MOD /hpf; SQUAMOUS EPITHELIAL CELL URINE > 8 /hpf (0-5)
[2017-06-03] MEDS ORDERED: IOHEXOL 350 MG/ML 10 ML VIAL (for RAD DIAG) IVCONTRAST ONE (05:21)
[2017-06-03 05:25] VITALS: RESP 16; O2SAT 99
[2017-06-03] MEDS ORDERED: MACR100C2 PO (05:45)
--- NOTE | 2017-06-03 06:07 | RADRPT ---
EXAM DATE/TIME: 06/03/2017 05:15 [place] COMPARISON: No previous studies available for comparison. INDICATIONS : Upper abdominal and back pain. IV CONTRAST: 65 cc Omnipaque 350 (iohexol) IV RADIATION DOSE: 5.48 CTDIvol (mGy) MEDICAL HISTORY : None SURGICAL HISTORY : None. ENCOUNTER: Initial ACUITY: 1 day PAIN SCALE: 10/10 LOCATION: upper quadrant abdomen TECHNIQUE: Volumetric scanning of the chest was performed using a pulmonary embolism protocol MIP images were re constructed. Using automated exposure control and adjustment of the mA and/or kV according to patien t size, radiation dose was kept as low as reasonably achievable to obtain optimal diagnostic quality images. DICOM format image data is available electronically for review and comparison. Follow-up recommendations for detected pulmonary nodules are based at a minimum on nodule size and pa tient risk factors according to Fleischner Society Guidelines. FINDINGS: PULMONARY ARTERIES: No filling defects are seen in the pulmonary arteries through the segmental level. LUNGS: There is no consolidation or pneumothorax . No concerning pulmonary nodule is visualized. PLEURAE: There is no pleural thickening or pleural effusion. MEDIASTINUM: There is good visualization of the great vessels of the middle mediastinum. No evidence of mediastin al or hilar adenopathy/mass. CONCLUSION: The study is negative for pulmonary embolism. Curtis Pak MD on June 03, 2017 at 6:04 Board Certified Radiologist. This report was verified electronically.
[2017-06-03] MEDS ORDERED: PHEN0.4T PO (06:18)
[2017-06-03 06:28] VITALS: BP 102/56; TEMP 98.3
== END 2017-06-03 06:32 | disposition home or self-care (01) ==
LOC: PHED 03:29
DX: N39.0 Urinary tract infection, site not specified (principal); R31.9 Hematuria, unspecified; N94.6 Dysmenorrhea, unspecified; R07.81 Pleurodynia; Z98.890 Other specified postprocedural states
CPT/HCPCS: 71275; 80048; 81001; 84702; 84703; 85025; 85379; 87086; 96374; 96375; 99285; J1885; J2405; J7030; Q9967